=== PATIENT | female | born 1945 | race Caucasian/White ===

== ENCOUNTER 2022-12-15 10:30 | Outpatient (RCR) | payer MEDICARE, SELFPAY ==
[2022-12-01 10:23] VITALS: TEMP 36.1; BMI 26.5
--- NOTE | 2022-12-01 14:40 | HP.PCM_ITS ---
History of Present Illness Date of Service: 12/01/22 Chief Complaint: Left breast wound History of Wound: This is a 77-year-old female who presented with a wound under her left breast which has been present for nearly 6 months. Her physicians have implemented a number of measures in treatment, all of which have been unsuccessful. She has used mupirocin ointment topically in the past, though more recently has been using an antifungal powder with a Telfa dressing. At present, she is not using any topical measures. Of note, the patient underwent coronary artery bypass grafting x5 in June 2022. She continues to recover from that surgery. 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 She was also lost approximately 40 pounds since her surgery. Her has recently , and she lives alone. She suffers from multiple pre-existing medical problems, which have been listed below. She indicates that she is typically not worn a brassiere in recent months. The patient is noted to be on systemic anticoagulation with Eliquis. [facility] Medical History Apnea, sleep Arthritis Atherosclerotic heart disease of [place] coronary artery with unstable angina pectoris Chronic venous insufficiency CKD (chronic kidney disease) stage 3, GFR 30-59 ml/min Congestive heart failure Diabetes mellitus Essential hypertension Gastroparesis Gastroparesis History of squamous cell carcinoma Hyperlipidemia Ischemic cardiomyopathy Left arm weakness Non-STEMI (non-ST elevated myocardial infarction) Normal pressure hydrocephalus Normal pressure hydrocephalus Sarcoidosis Sarcoidosis, angiolupoid type Surgical wound dehiscence Type 2 diabetes mellitus without complication Wound of left breast with complication Home Medications aspirin 325 mg tablet 325 mg PO DAILY 09/21/22 [History Last Taken Unknown] atorvastatin 80 mg tablet 80 mg PO QHS 09/21/22 [History Last Taken Unknown] clopidogrel 75 mg tablet 75 mg PO DAILY 09/21/22 [History Last Taken Unknown] furosemide 20 mg tablet 20 mg PO DAILY 09/21/22 [History Last Taken Unknown] insulin glargine 100 unit/mL (3 mL) subcutaneous pen 25 unit subcut DAILY 09/21/22 [History Last Taken Unknown] lisinopril 5 mg tablet 5 mg PO BID 09/21/22 [History Last Taken Unknown] metformin 500 mg tablet 1,000 mg PO DAILY 09/21/22 [History Last Taken Unknown] metoprolol succinate 25 mg tablet,extended release 24 hr 12.5 mg PO DAILY 09/21/22 [History Last Taken Unknown] potassium chloride 20 mEq tablet,extended release 20 meq PO DAILY 09/21/22 [History Last Taken Unknown] sennosides 8.6 mg-docusate sodium 50 mg tablet (Senna with Docusate Sodium) 1 tab-cap PO BID 09/21/22 [History Last Taken Unknown] spironolactone 25 mg tablet 12.5 mg PO DAILY 09/21/22 [History Last Taken Unknown] Allergy/AdvReac Type Severity Reaction Status Date / Time Penicillins Allergy Unknown Hives Verified 09/21/22 12:26 Family History Mother Cancer Colon cancer Father Diabetes Heart disease Sister Diabetes Seizures CVA (cerebral vascular accident) Surgical History History of arthroscopic knee surgery History of coronary artery bypass surgery (06/25/22) History of coronary artery stent placement History of hysterectomy History of left heart catheterization (06/24/22) History of PTCA Social History Smoking Status: Never smoker alcohol intake: current alcohol intake frequency: holidays/special occasions only substance use type: does not use caffeine: Yes Type: carbonated beverages Vital Signs Vital Signs Vital Signs: 12/01/22 10:23 Temperature 97.0 F L Temperature Source Temporal Weight Weight: 145 lb Body Mass Index (BMI) 26.5 Physical Exam Const alert, oriented x3, no apparent distress, average body habitus and well nourished General Appearance: cooperative, comfortable, well kempt and well developed Orientation / Consciousness: awake, oriented to person, oriented to place and oriented to time HEENT normocephalic, head/scalp atraumatic and hearing grossly normal bilaterally Head and Scalp: normal to inspection, normocephalic and atraumatic Face and Sinus: normal facial exam Nose: external nose normal External Ear: external ears normal Eyes PERRL and EOMs intact bilaterally General Eye: normal appearance of both eyes Resp normal respiratory effort, normal air movement, no retractions and no use of accessory muscles Effort and Inspection: able to speak in complete sentences Extremity no calf tenderness General Extremity: Negative for clubbing or cyanosis Skin Wound Narrative: A small open wound is noted in the inframammary crease on the left side. It is generally pink and healthy in appearance. There does not appear to be any evidence of infection or cellulitis. A small amount of bioburden is apparent. The wound is pink and healthy in appearance. Dimensions are documented elsewhere. There is noted to be a well-healed midline sternal incision. Well- healed incisions are also noted to the right and left of the midline at diaphragmatic level, presumed to be chest tube exit sites related to her recent surgery. There is also a similar healed incision inferior to the right breast. The wound in the left inframammary crease also has a likelihood of being a prior chest tube exit site. Neuro oriented x3, CN's II-XII intact bilaterally and moves all extremities Neuro Narrative: Mild weakness and motor deficit is noted in the patient's left upper extremity. Sensorium / Orientation: awake, alert, oriented to person, oriented to place and oriented to time Psych Appearance: grossly normal and appropriate Attitude: calm Activity / Motor Behavior: appropriate eye contact Speech: normal speech Mood & Affect: euthymic mood Thought Process: normal thought process Thought Content: normal thought content Attention / Concentration: attention grossly intact Debridement Note Debridement Note Wound debrided: Wound-left inframammary crease Laterality: Left Type of Debridement: Excisional debridement Anesthesia Used: 5% Lidocaine Gel Depth: Down to and including healthy tissue and in the subcutaneous layer Percentage of wound debrided: 100 Instrument Used: 5mm curette Tissue Removed: Bioburden Severity: Fat Layer Exposed Bleeding Controlled with: Compression and gauze Patient tolerated procedure: Patient tolerated procedure well Post-Debridement Measurements and Additional Note: Post-Debridement Measurements/Treatment - Nurse 1 - General Ulcer Assessment Start: 12/01/22 10:23 Freq: Status: Active Protocol: EBONY Activity Type Activity Date Activity User E-sign Co-sign Detail Recorded Client Recorded Date Recorded By Document 12/01/22 10:23 MW [id number] 12/01/22 10:34 MW 12/01/22 10:23 - Today's Visit Information Type of service Initial Visit Arrival Mode Ambulatory,Cane Transfer Assistance None Accompanied by self Patient Identification Verified (Name & Yes ) Patient Requires Transmission-Based No Precautions Safety Precautions NA Height and Weight Height 5 ft 2 in Weight 145 lb Weight in Pounds 145.0 lbs Weight Measurement Method Stated by Patient Body Mass Index (BMI) 26.5 BMI Classification Overweight BSA - Sarath 1.67 Vital Signs Temperature (97.8 F-99.1 F) 97.0 F L Temperature Source Temporal History Since Last Visit- (Skip if this is Patient's initial visit) Left Footwear Regular Shoe Right Footwear Regular Shoe Pain Scale: 0-10 Numeric Is Patient Pain Free? No Communication Assessment Preferred language [place] On[employer] Consultant Required No Able to Read Yes Able to Write Yes Communication Tools None Caregiver Communication Skills No Impairment Impairment Right Hearing Abillity Normal Left Hearing Abillity Normal Visual Assistive Devices Glasses Teaching Assessment Preferences Verbal,Written, Audio/Visual, Demonstration Barriers to Learning None Readiness To Learn Excellent Willingness to Engage in Self Management High Activies Readiness to Engage in Self Management High Activities Anxiety Level Calm Cooperation Cooperative Perception Coherent Interest in Health Problem Asks Questions Education Importance Acknowledges Need Does Patient Smoke tobacco or other Yes substances Smoking Status Never smoker Is Patient Diabetic Yes Functional Assessment Recent Decline in Ability to Perform Denies Any Declines Assistive Device With Patient Yes List Device(s) with Patient cane Culture/Holiness/Remote Broadcast Technician Cultural/Holiness Needs that may affect No Treatment Plan Would you allow our hospital new car driver to No meet you for the purpose of spiritual/ emotional support? Remote Broadcast Technician to contact place of oriental orthodox No WC - Nurse 1 - General Ulcer Measurement Start: 12/01/22 10:23 Freq: Status: Active Protocol: Activity Type Activity Date Activity User E-sign Co-sign Detail Recorded Client Recorded Date Recorded By Document 12/01/22 10:23 MW [id number] 12/01/22 10:34 MW 12/01/22 10:23 Wound Center Nurse 1 #1 Left breast -Combined with other wound No -Current Size (cm) - Length 1.1 -Current Size (cm) - Width 1.8 -Current Size (cm) - Depth 0.1 -Total Square Cm 1.98 -Date of Last Picture (Recall this 12/01/22 field) -Photo Taken Yes -Epithelialization None Present -Tunneling No -Undermining/Tunneling No -Circular Undermining No -Exudate Amt Small -Exudate Type Serous -Wound Margin Flat & Intact -Granulation Amt Large (67-100%) -Granulation Quality Bath -Slough/Fibrin Yes -Necrosis Amt Small (1-33%) -Necrotic Tissue Type Adherent Slough -Structure Exposed N/A -Texture (Roxanna-wound Skin Appearance) Assessed, Scarring -Moisture (Roxanna-wound Skin Appearance) No Abnormality, Assessed -Color (Roxanna-wound Skin Appearance) No Abnormality, Assessed -Temperature (Roxanna-wound Skin No Abnormality Appearance) (Pt Warm) -Tenderness on Palpation (Roxanna-wound No Skin Appearance) -Ulcer Cleansing Rinsed/ Irrigated with Saline -Foul Odor after Cleansing No -Anesthetic Used 5% Lidocaine Gel Lower Limb Edema Present No WC - Nurse 2 - General Ulcer CM Notes Start: 12/01/22 10:23 Freq: Status: Active Protocol: Activity Type Activity Date Activity User E-sign Co-sign Detail Recorded Client Recorded Date Recorded By Document 12/01/22 12:26 PL [id number] 12/01/22 12:27 PL 12/01/22 12:26 Wound Center Nurse 2 #1 Left breast -Time 11:15 -Correct Patient Yes -Correct Side, Site, Position Yes -Correct Procedure Yes -Procedure Performed Yes -Type of Procedure Debridement -Clinical Debridement Subcutaneous -Tissue Removed Subcutaneous -Post Debridement (cm) - Length 1.1 -Post Debridement (cm) - Width 1.8 -Post Debridement (cm) - Depth 0.1 -Total Square (Post) (cm) 1.98 -Area of Debridement (cm) - Length 1.1 -Area of Debridement (cm) - Width 1.8 -Total Square (Area) (cm) 1.98 -Tunneling No -Undermining/Tunneling No -Circular Undermining No -Wound/Ulcer Outcome Not Healed -Ulcer Cleansing Rinsed/ Irrigated with Saline -Foul Odor after Cleansing No -Bioengineered Tissue No -Bleeding Controlled with Pressure -Treatment Response Procedure Tolerated Well -Debridement - Subq, 1st 20sq cm Yes Pain Scale: 0-10 Numeric Is Patient Pain Free? Yes WC - Nurse 3 - General Ulcer D/C NN Start: 12/01/22 10:23 Freq: Status: Active Protocol: Activity Type Activity Date Activity User E-sign Co-sign Detail Recorded Client Recorded Date Recorded By Document 12/01/22 11:48 MW [id number] 12/01/22 11:49 MW 12/01/22 11:48 Wound Care Center Nurse 3 #1 Left breast -Ulcer Cleansing Rinsed/ Irrigated with Saline -Foul Odor after Cleansing No -Negative Pressure Wound Therapy N/A -Primary Dressing Applied Aquacel Extra -Primary Dressing Covered/Secured with Secured with Tape -Other Covering abd pad -Aquacel Extra 1 Treatment Response Procedure Tolerated Well Pain Scale: 0-10 Numeric Is Patient Pain Free? Yes Teaching: Wound Center Dressing Your Wound -Person Taught Patient -Teaching Method Discussion, Demonstration -Response to teaching Verbalize understanding WC - Visit Discharge Discharge Condition Stable Ambulatory Status Ambulatory,Cane Transportation [facility] transport Medication Reconcilliation completed & No provided to patient/care provider Clinical Summary of Care Provided Yes Assessment/Plan Assessment/Plan (1) Surgical wound dehiscence: CODE(S): T81.31XA - Disruption of external operation (surgical) wound, not elsewhere classified, initial encounter (2) Wound of left breast with complication: CODE(S): S21.002A - Unspecified open wound of left breast, initial encounter (3) Ischemic cardiomyopathy: CODE(S): I25.5 - Ischemic cardiomyopathy (4) Non-STEMI (non-ST elevated myocardial infarction): CODE(S): I21.4 - Non-ST elevation (NSTEMI) myocardial infarction (5) Essential hypertension: CODE(S): I10 - Essential (primary) hypertension (6) Hyperlipidemia: CODE(S): E78.5 - Hyperlipidemia, unspecified (7) Atherosclerotic heart disease of [place] coronary artery with unstable angina pectoris: CODE(S): I25.110 - Atherosclerotic heart disease of [place] coronary artery with unstable angina pectoris (8) History of coronary artery bypass surgery: CODE(S): Z95.1 - Presence of aortocoronary bypass graft (9) Diabetes mellitus: CODE(S): E11.9 - Type 2 diabetes mellitus without complications (10) Sarcoidosis: CODE(S): D86.9 - Sarcoidosis, unspecified (11) Arthritis: CODE(S): M19.90 - Unspecified osteoarthritis, unspecified site (12) Congestive heart failure: CODE(S): I50.9 - Heart failure, unspecified (13) Gastroparesis: CODE(S): K31.84 - Gastroparesis (14) Apnea, sleep: CODE(S): G47.30 - Sleep apnea, unspecified (15) Chronic venous insufficiency: CODE(S): I87.2 - Venous insufficiency (chronic) (peripheral) (16) History of squamous cell carcinoma: CODE(S): Z85.89 - Personal history of malignant neoplasm of other organs and systems (17) Normal pressure hydrocephalus: CODE(S): G91.2 - (Idiopathic) normal pressure hydrocephalus (18) Left arm weakness: CODE(S): R29.898 - Other symptoms and signs involving the musculoskeletal system (19) History of PTCA: CODE(S): Z98.61 - Coronary angioplasty status (20) History of arthroscopic knee surgery: CODE(S): Z98.890 - Other specified postprocedural states (21) History of hysterectomy: CODE(S): Z90.710 - Acquired absence of both cervix and uterus PLAN: Plan This is a 77-year-old female who presents with a wound in the left inframammary crease. It has been present for nearly 6 months. It appears generally pink and healthy in appearance, with a small amount of bioburden. There is no sign of infection or cellulitis. Concern exists to the fact that the wound is located in an intertriginous zone, subject to body heat and perspiration. This issue has been discussed with the patient in detail, with efforts described to avoid these conditions. We are to implement the use of Aquacel topically, which will be applied on a daily basis. An absorptive dressing has been recommended, such as gauze, rather than the use of Telfa. Because of the patient's left upper extremity weakness, we are to request home health nursing care for assistance with dressing changes. Patient lives alone, having lost her recently. Nutritional optimization has been recommended. Patient has undergone recent laboratory testing at [facility] in [place], and these records will be requested. The patient has been encouraged to use a brassiere to lift the breast away from light of the wound, to minimize the accumulation of body heat and perspiration. However, efforts must be undertaken to avoid friction from the procedure itself. Optimizing glycemic control has also been recommended. Finally, the patient's recent cardiac surgery, difficult recovery, and the loss of her recently have resulted in some depressive symptoms, even suicidal ideations. The patient indicates she has discussed this with her primary care physician, though efforts to address these issues have not been forthcoming. Wound center staff will contact patient's primary care physician to request appropriate intervention and oversight. Patient is to return for reevaluation in 2 weeks. Total time: 48 minutes
[2022-12-15 10:10] VITALS: BP 116/71; PULSE 89; RESP 18; TEMP 35.8; BMI 26.5
--- NOTE | 2022-12-15 15:14 | HP.PCM_ITS ---
History of Present Illness Date of Service: 12/15/22 Chief Complaint: Left breast wound History of Wound: This is a 77-year-old female who presented with a wound under her left breast which has been present for nearly 6 months. Her physicians have implemented a number of measures in treatment, all of which have been unsuccessful. She has used mupirocin ointment topically in the past, though more recently has been using an antifungal powder with a Telfa dressing. At present, she is not using any topical measures. Of note, the patient underwent coronary artery bypass grafting x5 in June 2022. She continues to recover from that surgery. 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 She was also lost approximately 40 pounds since her surgery. Her has recently , and she lives alone. She suffers from multiple pre-existing medical problems, which have been listed below. She indicates that she is typically not worn a brassiere in recent months. The patient is noted to be on systemic anticoagulation with Eliquis. [facility] Medical History Apnea, sleep Arthritis Atherosclerotic heart disease of [place] coronary artery with unstable angina pectoris Chronic venous insufficiency CKD (chronic kidney disease) stage 3, GFR 30-59 ml/min Congestive heart failure Diabetes mellitus Essential hypertension Gastroparesis Gastroparesis History of squamous cell carcinoma Hyperlipidemia Ischemic cardiomyopathy Left arm weakness Non-STEMI (non-ST elevated myocardial infarction) Normal pressure hydrocephalus Normal pressure hydrocephalus Sarcoidosis Sarcoidosis, angiolupoid type Surgical wound dehiscence Type 2 diabetes mellitus without complication Wound of left breast with complication Home Medications aspirin 325 mg tablet 325 mg PO DAILY 09/21/22 [History Last Taken Unknown] atorvastatin 80 mg tablet 80 mg PO QHS 09/21/22 [History Last Taken Unknown] clopidogrel 75 mg tablet 75 mg PO DAILY 09/21/22 [History Last Taken Unknown] furosemide 20 mg tablet 20 mg PO DAILY 09/21/22 [History Last Taken Unknown] insulin glargine 100 unit/mL (3 mL) subcutaneous pen 25 unit subcut DAILY 09/21/22 [History Last Taken Unknown] lisinopril 5 mg tablet 5 mg PO BID 09/21/22 [History Last Taken Unknown] metformin 500 mg tablet 1,000 mg PO DAILY 09/21/22 [History Last Taken Unknown] metoprolol succinate 25 mg tablet,extended release 24 hr 12.5 mg PO DAILY 09/21/22 [History Last Taken Unknown] potassium chloride 20 mEq tablet,extended release 20 meq PO DAILY 09/21/22 [History Last Taken Unknown] sennosides 8.6 mg-docusate sodium 50 mg tablet (Senna with Docusate Sodium) 1 tab-cap PO BID 09/21/22 [History Last Taken Unknown] spironolactone 25 mg tablet 12.5 mg PO DAILY 09/21/22 [History Last Taken Unknown] Allergy/AdvReac Type Severity Reaction Status Date / Time Penicillins Allergy Unknown Hives Verified 09/21/22 12:26 Family History Mother Cancer Colon cancer Father Diabetes Heart disease Sister Diabetes Seizures CVA (cerebral vascular accident) Surgical History History of arthroscopic knee surgery History of coronary artery bypass surgery (06/25/22) History of coronary artery stent placement History of hysterectomy History of left heart catheterization (06/24/22) History of PTCA Social History Smoking Status: Never smoker alcohol intake: current alcohol intake frequency: holidays/special occasions only substance use type: does not use caffeine: Yes Type: carbonated beverages Vital Signs Vital Signs Vital Signs: 12/15/22 10:10 Temperature 96.5 F L Temperature Source Temporal Pulse Rate 89 Respiratory Rate 18 Blood Pressure 116/71 Blood Pressure Mean 86 Blood Pressure Source Monitor Weight Weight: 145 lb Body Mass Index (BMI) 26.5 Physical Exam Const alert, oriented x3, no apparent distress, average body habitus and well nourished General Appearance: cooperative, comfortable, well kempt and well developed Orientation / Consciousness: awake, oriented to person, oriented to place and oriented to time HEENT normocephalic, head/scalp atraumatic and hearing grossly normal bilaterally Head and Scalp: normal to inspection, normocephalic and atraumatic Face and Sinus: normal facial exam Nose: external nose normal External Ear: external ears normal Eyes PERRL and EOMs intact bilaterally General Eye: normal appearance of both eyes Resp normal respiratory effort, normal air movement, no retractions and no use of accessory muscles Effort and Inspection: able to speak in complete sentences Extremity no calf tenderness General Extremity: Negative for clubbing or cyanosis Skin Wound Narrative: A small open wound is noted in the inframammary crease on the left side. It is generally pink and healthy in appearance, and smaller in size than previously n oted. There has been significant progress since the patient's last visit. There does not appear to be any evidence of infection or cellulitis. A small amount of bioburden is apparent. The wound is pink and healthy in appearance. Dimensions are documented elsewhere. There is noted to be a well-healed midline sternal incision. Well-healed incisions are also noted to the right and left of the midline at diaphragmatic level, presumed to be chest tube exit sites related to her recent surgery. There is also a similar healed incision inferior to the right breast. The wound in the left inframammary crease also has a likelihood of being a prior chest tube exit site. Neuro oriented x3, CN's II-XII intact bilaterally and moves all extremities Neuro Narrative: Mild weakness and motor deficit is noted in the patient's left upper extremity. Sensorium / Orientation: awake, alert, oriented to person, oriented to place and oriented to time Psych Appearance: grossly normal and appropriate Attitude: calm Activity / Motor Behavior: appropriate eye contact Speech: normal speech Mood & Affect: euthymic mood Thought Process: normal thought process Thought Content: normal thought content Attention / Concentration: attention grossly intact Debridement Note Debridement Note Wound debrided: Wound-left inframammary crease Laterality: Left Type of Debridement: Excisional debridement Anesthesia Used: 5% Lidocaine Gel Depth: Down to and including healthy tissue and in the subcutaneous layer Percentage of wound debrided: 100 Instrument Used: 5mm curette Tissue Removed: Bioburden Severity: Fat Layer Exposed Bleeding Controlled with: Compression and gauze Patient tolerated procedure: Patient tolerated procedure well Post-Debridement Measurements and Additional Note: Post-Debridement Measurements/Treatment WC - Nurse 1 - General Ulcer Assessment Start: 12/01/22 10:23 Freq: Status: Active Protocol: ULYSSES.LOWNEISHA Activity Type Activity Date Activity User E-sign Co-sign Detail Recorded Client Recorded Date Recorded By Document 12/01/22 10:23 MW [id number] 04/11/23 10:34 MW Document 12/15/22 10:10 DL [id number] 12/15/22 10:15 DL 12/01/22 12/15/22 10:23 10:10 WC - Today's Visit Information Type of service Initial Visit Follow-up Visit (Physician/TOUR COUNSELOR ) Arrival Mode Ambulatory,Cane Ambulatory,Cane Transfer Assistance None None Accompanied by self Patient Identification Verified (Name & Yes Yes ) Patient Requires Transmission-Based No No Precautions Safety Precautions NA Finger Stick Blood Sugar(mg/dl) (if 95 indicated): Blood Sugar Stated by Patient Height and Weight Height 5 ft 2 in Weight 145 lb Weight in Pounds 145.0 lbs Weight Measurement Method Stated by Patient Body Mass Index (BMI) 26.5 26.5 BMI Classification Overweight Overweight BSA - Sarath 1.67 Vital Signs Temperature (97.8 F-99.1 F) 97.0 F L 96.5 F L Temperature Source Temporal Temporal Pulse Rate (60-100) 89 [address]ulse Location Monitor Respiratory Rate (12-18) 18 Respiratory rate source Observation Blood Pressure (90/60-120/80) 116/71 Blood Pressure Mean 86 Source Monitor History Since Last Visit- (Skip if this is Patient's initial visit) Have you changed medications since your No last visit? Any new allergies or adverse reactions No Had a fall/change in ADL's that may No increase risk of falls Signs or symptoms of abuse and/or No neglect since last visit Have you been in the hospital since your No last visit? Has dressing in place as prescribed Yes Has compression in place as prescribed N/A Has offloadiing in place as prescribed N/A Experienced any changes in pain level or No management Left Footwear Regular Shoe Right Footwear Regular Shoe Pain Scale: 0-10 Numeric Is Patient Pain Free? No Yes Communication Assessment Preferred language K[place] Sales Advisor Required No Able to Read Yes Able to Write Yes Communication Tools None Caregiver Communication Skills No Impairment Impairment Right Hearing Abillity Normal Left Hearing Abillity Normal Visual Assistive Devices Glasses Teaching Assessment Preferences Verbal,Written, Audio/Visual, Demonstration Barriers to Learning None Readiness To Learn Excellent Willingness to Engage in Self Management High Activies Readiness to Engage in Self Management High Activities Anxiety Level Calm Cooperation Cooperative Perception Coherent Interest in Health Problem Asks Questions Education Importance Acknowledges Need Does Patient Smoke tobacco or other Yes substances Smoking Status Never smoker Is Patient Diabetic Yes Functional Assessment Recent Decline in Ability to Perform Denies Any Declines Assistive Device With Patient Yes List Device(s) with Patient cane Culture/Anabaptist/Attorney General Cultural/Anabaptist Needs that may affect No Treatment Plan Would you allow our hospital general pediatrician to No meet you for the purpose of spiritual/ emotional support? Attorney General to contact place of nondenominational No WC - Nurse 1 - General Ulcer Measurement Start: 12/01/22 10:23 Freq: Status: Active Protocol: Activity Type Activity Date Activity User E-sign Co-sign Detail Recorded Client Recorded Date Recorded By Document 12/01/22 10:23 MW [id number] 12/01/22 10:34 MW Document 12/15/22 10:10 DL [id number] 12/15/22 10:15 DL 12/01/22 12/15/22 10:23 10:10 Wound Center Nurse 1 #1 Left breast -Combined with other wound No -Current Size (cm) - Length 1.1 0 -Current Size (cm) - Width 1.8 0 -Current Size (cm) - Depth 0.1 0 -Total Square Cm 1.98 0 -Date of Last Picture (Recall this 12/01/22 field) -Photo Taken Yes Yes -Epithelialization None Present -Tunneling No -Undermining/Tunneling No -Circular Undermining No -Exudate Amt Small None Present -Exudate Type Serous -Wound Margin Flat & Intact Flat & Intact -Granulation Amt Large (67-100%) Large (67-100%) -Granulation Quality [place] -Slough/Fibrin Yes -Necrosis Amt Small (1-33%) None Present (0 %) -Necrotic Tissue Type Adherent Slough -Structure Exposed N/A N/A -Texture (Roxanna-wound Skin Appearance) Assessed, Scarring Scarring -Moisture (Roxanna-wound Skin Appearance) No Abnormality, No Abnormality Assessed -Color (Roxanna-wound Skin Appearance) No Abnormality, No Abnormality Assessed -Temperature (Roxanna-wound Skin No Abnormality No Abnormality Appearance) (Pt Warm) (Pt Warm) -Tenderness on Palpation (Roxanna-wound No No Skin Appearance) -Ulcer Cleansing Rinsed/ Rinsed/ Irrigated with Irrigated with Saline Saline -Foul Odor after Cleansing No No -Anesthetic Used 5% Lidocaine 5% Lidocaine Gel Gel Lower Limb Edema Present No WC - Nurse 2 - General Ulcer CM Notes Start: 12/01/22 10:23 Freq: Status: Active Protocol: Activity Type Activity Date Activity User E-sign Co-sign Detail Recorded Client Recorded Date Recorded By Document 12/01/22 12:26 PL [id number] 12/01/22 12:27 PL Document 12/15/22 12:16 PL [id number] 12/15/22 12:17 PL 12/01/22 12/15/22 12:26 12:16 Wound Center Nurse 2 #1 Left breast -Time 11:15 10:52 -Correct Patient Yes Yes -Correct Side, Site, Position Yes Yes -Correct Procedure Yes Yes -Procedure Performed Yes Yes -Type of Procedure Debridement Debridement -Clinical Debridement Subcutaneous Subcutaneous -Tissue Removed Subcutaneous Subcutaneous -Post Debridement (cm) - Length 1.1 0.3 -Post Debridement (cm) - Width 1.8 0.3 -Post Debridement (cm) - Depth 0.1 0.1 -Total Square (Post) (cm) 1.98 0.09 -Area of Debridement (cm) - Length 1.1 0.3 -Area of Debridement (cm) - Width 1.8 0.3 -Total Square (Area) (cm) 1.98 0.09 -Tunneling No No -Undermining/Tunneling No No -Circular Undermining No No -Wound/Ulcer Outcome Not Healed Not Healed -Ulcer Cleansing Rinsed/ Rinsed/ Irrigated with Irrigated with Saline Saline -Foul Odor after Cleansing No No -Bioengineered Tissue No No -Bleeding Controlled with Pressure Pressure -Treatment Response Procedure Procedure Tolerated Well Tolerated Well -Debridement - Subq, 1st 20sq cm Yes Yes Pain Scale: 0-10 Numeric Is Patient Pain Free? Yes Yes WC - Nurse 3 - General Ulcer D/C NN Start: 12/01/22 10:23 Freq: Status: Active Protocol: Activity Type Activity Date Activity User E-sign Co-sign Detail Recorded Client Recorded Date Recorded By Document 12/01/22 11:48 MW [id number] 12/01/22 11:49 MW Document 12/15/22 11:02 MW [id number] 12/15/22 11:04 MW 12/01/22 12/15/22 11:48 11:02 Wound Care Center Nurse 3 #1 Left breast -Ulcer Cleansing Rinsed/ Rinsed/ Irrigated with Irrigated with Saline Saline -Foul Odor after Cleansing No No -Negative Pressure Wound Therapy N/A N/A -Primary Dressing Applied Aquacel Extra Aquacel Extra -Primary Dressing Covered/Secured with Secured with Dry Gauze, Tape Secured with Tape -Other Covering abd pad -Aquacel Extra 1 1 Treatment Response Procedure Procedure Tolerated Well Tolerated Well Pain Scale: 0-10 Numeric Is Patient Pain Free? Yes Yes Teaching: Wound Center Dressing Your Wound -Person Taught Patient Patient,Family -Teaching Method Discussion, Discussion Demonstration -Response to teaching Verbalize Verbalize understanding understanding WC - Visit Discharge Discharge Condition Stable Stable Ambulatory Status Ambulatory,Cane Ambulatory,Cane Transportation [facility] transport [facility] transport Accompanied by self Medication Reconcilliation completed & No No provided to patient/care provider Clinical Summary of Care Provided Yes Yes Notes: Dressing applied per Jos eMiguel Montiel LPN. Patient tolerated well. Assessment/Plan Assessment/Plan (1) Surgical wound dehiscence: CODE(S): T81.31XA - Disruption of external operation (surgical) wound, not elsewhere classified, initial encounter (2) Wound of left breast with complication: CODE(S): S21.002A - Unspecified open wound of left breast, initial encounter (3) Ischemic cardiomyopathy: CODE(S): I25.5 - Ischemic cardiomyopathy (4) Non-STEMI (non-ST elevated myocardial infarction): CODE(S): I21.4 - Non-ST elevation (NSTEMI) myocardial infarction (5) Essential hypertension: CODE(S): I10 - Essential (primary) hypertension (6) Hyperlipidemia: CODE(S): E78.5 - Hyperlipidemia, unspecified (7) Atherosclerotic heart disease of [place] coronary artery with unstable angina pectoris: CODE(S): I25.110 - Atherosclerotic heart disease of [place] coronary artery with unstable angina pectoris (8) History of coronary artery bypass surgery: CODE(S): Z95.1 - Presence of aortocoronary bypass graft (9) Diabetes mellitus: CODE(S): E11.9 - Type 2 diabetes mellitus without complications (10) Sarcoidosis: CODE(S): D86.9 - Sarcoidosis, unspecified (11) Arthritis: CODE(S): M19.90 - Unspecified osteoarthritis, unspecified site (12) Congestive heart failure: CODE(S): I50.9 - Heart failure, unspecified (13) Gastroparesis: CODE(S): K31.84 - Gastroparesis (14) Apnea, sleep: CODE(S): G47.30 - Sleep apnea, unspecified (15) Chronic venous insufficiency: CODE(S): I87.2 - Venous insufficiency (chronic) (peripheral) (16) History of squamous cell carcinoma: CODE(S): Z85.89 - Personal history of malignant neoplasm of other organs and systems (17) Normal pressure hydrocephalus: CODE(S): G91.2 - (Idiopathic) normal pressure hydrocephalus (18) Left arm weakness: CODE(S): R29.898 - Other symptoms and signs involving the musculoskeletal system (19) History of PTCA: CODE(S): Z98.61 - Coronary angioplasty status (20) History of arthroscopic knee surgery: CODE(S): Z98.890 - Other specified postprocedural states (21) History of hysterectomy: CODE(S): Z90.710 - Acquired absence of both cervix and uterus PLAN: Plan This is a 77-year-old female who presents with a wound in the left inframammary crease. It has been present for nearly 6 months. It appears generally pink and healthy in appearance, with a small amount of bioburden. It has decreased in size since the patient's last visit. There is no sign of infection or cellulitis. Concern exists to the fact that the wound is located in an intertriginous zone, subject to body heat and perspiration. This issue has been discussed with the patient in detail, with efforts described to avoid these conditions. We are to implement the use of Aquacel topically, which will be applied on a daily basis. An absorptive dressing has been recommended, such as gauze, rather than the use of Telfa. Because of the patient's left upper extremity weakness, we requested home health nursing care for assistance with dressing changes. However, this has been denied. Patient lives alone, having lost her recently. Nutritional optimization has been recommended. Patient has undergone recent laboratory testing at [facility] in [place], and these records have been reviewed. Results are as follows: White blood count 9.6, hemoglobin 13.0, hematocrit 39.8, platelets 309,000, glucose 139, sodium 140, potassium 5.1, BUN 25, creatinine 1.23, calcium 9.1, total protein 8.0, albumin 3.7, alkaline phosphatase 141, AST 34, ALT 23, triglycerides 220, cholesterol 157. The patient has been encouraged to use a brassiere to lift the breast away from light of the wound, to minimize the accumulation of body heat and perspiration. However, efforts must be undertaken to avoid friction from the brassiere itself. Optimizing glycemic control has also been recommended. Finally, the patient's recent cardiac surgery, difficult recovery, and the loss of her recently have resulted in some depressive symptoms, even suicidal ideations. The patient indicates she has discussed this with her primary care physician, though efforts to address these issues have not been forthcoming. Wound center staff has contacted the patient's primary care physician to request appropriate intervention and oversight in this regard. The patient is to return for reevaluation in 1 week. Total time: 25 minutes
== END 2022-12-20 23:59 | disposition home or self-care (01) ==
LOC: WC 10:30
PROVIDERS: PCP Nurse Practitioner Primary Care; Referring Provider Nurse Practitioner Primary Care; Visit Provider Surgery
DX: T81.31XA Disruption of external operation (surgical) wound, not elsewhere classified, initial encounter (principal); G91.2 (Idiopathic) normal pressure hydrocephalus; I50.9 Heart failure, unspecified; I13.0 Hypertensive heart and chronic kidney disease with heart failure and stage 1 through stage 4 chronic kidney disease, or unspecified chronic kidney disease; E11.43 Type 2 diabetes mellitus with diabetic autonomic (poly)neuropathy; E11.59 Type 2 diabetes mellitus with other circulatory complications; E11.22 Type 2 diabetes mellitus with diabetic chronic kidney disease; I25.110 Atherosclerotic heart disease of native coronary artery with unstable angina pectoris; N18.30 Chronic kidney disease, stage 3 unspecified; Z79.82 Long term (current) use of aspirin; Z90.710 Acquired absence of both cervix and uterus; K31.84 Gastroparesis; E78.5 Hyperlipidemia, unspecified; G47.30 Sleep apnea, unspecified; Z80.0 Family history of malignant neoplasm of digestive organs; R53.1 Weakness; M19.90 Unspecified osteoarthritis, unspecified site; I25.5 Ischemic cardiomyopathy; I87.2 Venous insufficiency (chronic) (peripheral); Z98.61 Coronary angioplasty status; D86.9 Sarcoidosis, unspecified; S21.002A Unspecified open wound of left breast, initial encounter; I25.2 Old myocardial infarction; R29.898 Other symptoms and signs involving the musculoskeletal system
CPT/HCPCS: 11042; 99213; G0463

== ENCOUNTER 2022-12-22 10:37 | Outpatient (RCR) | payer MEDICARE, SELFPAY ==
[2022-12-21 00:09] VITALS: BP 116/71; PULSE 89; RESP 18; TEMP 35.8; BMI 26.5
[2022-12-22 10:42] VITALS: BP 118/75; PULSE 78; RESP 18; TEMP 35.6; BMI 26.5
--- NOTE | 2022-12-22 11:03 | PCM.WC.HP ---
History of Present Illness Date of Service: 12/22/22 Chief Complaint: Left breast wound History of Wound: This is a 77-year-old female who presented with a wound under her left breast which has been present for nearly 6 months. Her physicians have implemented a number of measures in treatment, all of which have been unsuccessful. She has used mupirocin ointment topically in the past, though more recently has been using an antifungal powder with a Telfa dressing. At present, she is not using any topical measures. Of note, the patient underwent coronary artery bypass grafting x5 in June 2022. She continues to recover from that surgery. 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 She was also lost approximately 40 pounds since her surgery. Her has recently , and she lives alone. She suffers from multiple pre-existing medical problems, which have been listed below. She indicates that she is typically not worn a brassiere in recent months. The patient is noted to be on systemic anticoagulation with Eliquis. [facility] Medical History Apnea, sleep Arthritis Atherosclerotic heart disease of [place] coronary artery with unstable angina pectoris Chronic venous insufficiency CKD (chronic kidney disease) stage 3, GFR 30-59 ml/min Congestive heart failure Diabetes mellitus Essential hypertension Gastroparesis Gastroparesis History of squamous cell carcinoma Hyperlipidemia Ischemic cardiomyopathy Left arm weakness Non-STEMI (non-ST elevated myocardial infarction) Normal pressure hydrocephalus Normal pressure hydrocephalus Sarcoidosis Sarcoidosis, angiolupoid type Surgical wound dehiscence Type 2 diabetes mellitus without complication Wound of left breast with complication Home Medications aspirin 325 mg tablet 325 mg PO DAILY 09/21/22 [History Last Taken Unknown] atorvastatin 80 mg tablet 80 mg PO QHS 09/21/22 [History Last Taken Unknown] clopidogrel 75 mg tablet 75 mg PO DAILY 09/21/22 [History Last Taken Unknown] furosemide 20 mg tablet 20 mg PO DAILY 09/21/22 [History Last Taken Unknown] insulin glargine 100 unit/mL (3 mL) subcutaneous pen 25 unit subcut DAILY 09/21/22 [History Last Taken Unknown] lisinopril 5 mg tablet 5 mg PO BID 09/21/22 [History Last Taken Unknown] metformin 500 mg tablet 1,000 mg PO DAILY 09/21/22 [History Last Taken Unknown] metoprolol succinate 25 mg tablet,extended release 24 hr 12.5 mg PO DAILY 09/21/22 [History Last Taken Unknown] potassium chloride 20 mEq tablet,extended release 20 meq PO DAILY 09/21/22 [History Last Taken Unknown] sennosides 8.6 mg-docusate sodium 50 mg tablet (Senna with Docusate Sodium) 1 tab-cap PO BID 09/21/22 [History Last Taken Unknown] spironolactone 25 mg tablet 12.5 mg PO DAILY 09/21/22 [History Last Taken Unknown] Allergy/AdvReac Type Severity Reaction Status Date / Time Penicillins Allergy Unknown Hives Verified 09/21/22 12:26 Family History Mother Cancer Colon cancer Father Diabetes Heart disease Sister Diabetes Seizures CVA (cerebral vascular accident) Surgical History History of arthroscopic knee surgery History of coronary artery bypass surgery (06/25/22) History of coronary artery stent placement History of hysterectomy History of left heart catheterization (06/24/22) History of PTCA Social History Smoking Status: Never smoker alcohol intake: current alcohol intake frequency: holidays/special occasions only substance use type: does not use caffeine: Yes Type: carbonated beverages Vital Signs Vital Signs Vital Signs: 12/22/22 10:42 Temperature 96.1 F L Temperature Source Temporal Pulse Rate 78 Respiratory Rate 18 Blood Pressure 118/75 Blood Pressure Mean 89 Blood Pressure Source Monitor Weight Weight: 145 lb Body Mass Index (BMI) 26.5 Physical Exam Const alert, oriented x3, no apparent distress, average body habitus and well nourished General Appearance: cooperative, comfortable, well kempt and well developed Orientation / Consciousness: awake, oriented to person, oriented to place and oriented to time HEENT normocephalic, head/scalp atraumatic and hearing grossly normal bilaterally Head and Scalp: normal to inspection, normocephalic and atraumatic Face and Sinus: normal facial exam Nose: external nose normal External Ear: external ears normal Eyes PERRL and EOMs intact bilaterally General Eye: normal appearance of both eyes Resp normal respiratory effort, normal air movement, no retractions and no use of accessory muscles Effort and Inspection: able to speak in complete sentences Extremity no calf tenderness General Extremity: Negative for clubbing or cyanosis Skin Wound Narrative: The wound in the left inframammary crease is now healed and epithelialized. Neuro oriented x3, CN's II-XII intact bilaterally and moves all extremities Neuro Narrative: Mild weakness and motor deficit is noted in the patient's left upper extremity. Sensorium / Orientation: awake, alert, oriented to person, oriented to place and oriented to time Psych Appearance: grossly normal and appropriate Attitude: calm Activity / Motor Behavior: appropriate eye contact Speech: normal speech Mood & Affect: euthymic mood Thought Process: normal thought process Thought Content: normal thought content Attention / Concentration: attention grossly intact Debridement Note Debridement Note No debridement was completed: No debridement was completed today (The patient's left breast wound is healed and epithelialized.) Post-Debridement Measurements and Additional Note: Post-Debridement Measurements/Treatment - Nurse 1 - General Ulcer Assessment Start: 12/22/22 10:42 Freq: Status: Active Protocol: EBONY Activity Type Activity Date Activity User E-sign Co-sign Detail Recorded Client Recorded Date Recorded By Document 12/22/22 10:42 DL [id number] 12/22/22 10:48 DL 12/22/22 10:42 - Today's Visit Information Type of service Follow-up Visit (Physician/HOME APPLIANCE TECH ) Arrival Mode Ambulatory,Cane Transfer Assistance Hilario Lift,None Patient Identification Verified (Name & Yes ) Patient Requires Transmission-Based No Precautions Finger Stick Blood Sugar(mg/dl) (if not checked indicated): Blood Sugar Stated by Patient Height and Weight Body Mass Index (BMI) 26.5 BMI Classification Overweight Vital Signs Temperature (97.8 F-99.1 F) 96.1 F L Temperature Source Temporal Pulse Rate (60-100) 78 Pulse Location Monitor Respiratory Rate (12-18) 18 Respiratory rate source Observation Blood Pressure (90/60-120/80) 118/75 Blood Pressure Mean 89 Source Monitor History Since Last Visit- (Skip if this is Patient's initial visit) Have you changed medications since your No last visit? Any new allergies or adverse reactions No Had a fall/change in ADL's that may No increase risk of falls Signs or symptoms of abuse and/or No neglect since last visit Have you been in the hospital since your No last visit? Has dressing in place as prescribed Yes Has compression in place as prescribed N/A Has offloadiing in place as prescribed N/A Experienced any changes in pain level or No management Pain Scale: 0-10 Numeric Is Patient Pain Free? Yes WC - Nurse 1 - General Ulcer Measurement Start: 12/22/22 10:42 Freq: Status: Active Protocol: Activity Type Activity Date Activity User E-sign Co-sign Detail Recorded Client Recorded Date Recorded By Document 12/22/22 10:42 DL [id number] 12/22/22 10:48 DL 12/22/22 10:42 Wound Center Nurse 1 #1 Left breast -Current Size (cm) - Length 0 -Current Size (cm) - Width 0 -Current Size (cm) - Depth 0 -Total Square Cm 0 -Photo Taken Yes -Exudate Amt None Present -Wound Margin Flat & Intact -Granulation Amt Large (67-100%) -Granulation Quality [place] -Necrosis Amt None Present (0 %) -Structure Exposed N/A -Texture (Roxanna-wound Skin Appearance) Scarring -Moisture (Roxanna-wound Skin Appearance) No Abnormality -Color (Roxanna-wound Skin Appearance) No Abnormality -Temperature (Roxanna-wound Skin No Abnormality Appearance) (Pt Warm) -Ulcer Cleansing Soap and Water -Foul Odor after Cleansing No Assessment/Plan Assessment/Plan (1) Surgical wound dehiscence: CODE(S): T81.31XA - Disruption of external operation (surgical) wound, not elsewhere classified, initial encounter (2) Wound of left breast with complication: CODE(S): S21.002A - Unspecified open wound of left breast, initial encounter (3) Ischemic cardiomyopathy: CODE(S): I25.5 - Ischemic cardiomyopathy (4) Non-STEMI (non-ST elevated myocardial infarction): CODE(S): I21.4 - Non-ST elevation (NSTEMI) myocardial infarction (5) Essential hypertension: CODE(S): I10 - Essential (primary) hypertension (6) Hyperlipidemia: CODE(S): E78.5 - Hyperlipidemia, unspecified (7) Atherosclerotic heart disease of [place] coronary artery with unstable angina pectoris: CODE(S): I25.110 - Atherosclerotic heart disease of [place] coronary artery with unstable angina pectoris (8) History of coronary artery bypass surgery: CODE(S): Z95.1 - Presence of aortocoronary bypass graft (9) Diabetes mellitus: CODE(S): E11.9 - Type 2 diabetes mellitus without complications (10) Sarcoidosis: CODE(S): D86.9 - Sarcoidosis, unspecified (11) Arthritis: CODE(S): M19.90 - Unspecified osteoarthritis, unspecified site (12) Congestive heart failure: CODE(S): I50.9 - Heart failure, unspecified (13) Gastroparesis: CODE(S): K31.84 - Gastroparesis (14) Apnea, sleep: CODE(S): G47.30 - Sleep apnea, unspecified (15) Chronic venous insufficiency: CODE(S): I87.2 - Venous insufficiency (chronic) (peripheral) (16) History of squamous cell carcinoma: CODE(S): Z85.89 - Personal history of malignant neoplasm of other organs and systems (17) Normal pressure hydrocephalus: CODE(S): G91.2 - (Idiopathic) normal pressure hydrocephalus (18) Left arm weakness: CODE(S): R29.898 - Other symptoms and signs involving the musculoskeletal system (19) History of PTCA: CODE(S): Z98.61 - Coronary angioplasty status (20) History of arthroscopic knee surgery: CODE(S): Z98.890 - Other specified postprocedural states (21) History of hysterectomy: CODE(S): Z90.710 - Acquired absence of both cervix and uterus PLAN: Plan This is a 77-year-old female who presented with a wound in the left inframammary crease. It had been present for nearly 6 months. The wound is now healed and epithelialized. The patient is to be discharged, with follow-up on an as-needed basis. For the next week or 2, the patient has been encouraged to keep the site clean and dry, and to avoid friction or trauma. Total time: 24 minutes
== END 2022-12-22 16:21 | disposition home or self-care (01) ==
LOC: WC 10:37
PROVIDERS: PCP Nurse Practitioner Primary Care; Referring Provider Nurse Practitioner Primary Care; Visit Provider Surgery
DX: T81.31XA Disruption of external operation (surgical) wound, not elsewhere classified, initial encounter (principal); G91.2 (Idiopathic) normal pressure hydrocephalus; I13.0 Hypertensive heart and chronic kidney disease with heart failure and stage 1 through stage 4 chronic kidney disease, or unspecified chronic kidney disease; I50.9 Heart failure, unspecified; E11.22 Type 2 diabetes mellitus with diabetic chronic kidney disease; E11.59 Type 2 diabetes mellitus with other circulatory complications; E11.43 Type 2 diabetes mellitus with diabetic autonomic (poly)neuropathy; I25.110 Atherosclerotic heart disease of native coronary artery with unstable angina pectoris; N18.30 Chronic kidney disease, stage 3 unspecified; M19.90 Unspecified osteoarthritis, unspecified site; G47.30 Sleep apnea, unspecified; D86.9 Sarcoidosis, unspecified; Z79.82 Long term (current) use of aspirin; Z98.61 Coronary angioplasty status; Z80.0 Family history of malignant neoplasm of digestive organs; Z82.3 Family history of stroke; K31.84 Gastroparesis; Z90.710 Acquired absence of both cervix and uterus; R53.1 Weakness; I25.5 Ischemic cardiomyopathy; I87.2 Venous insufficiency (chronic) (peripheral); E78.5 Hyperlipidemia, unspecified; Z85.89 Personal history of malignant neoplasm of other organs and systems; R29.898 Other symptoms and signs involving the musculoskeletal system; Z98.890 Other specified postprocedural states; S21.002A Unspecified open wound of left breast, initial encounter
CPT/HCPCS: 99213; G0463